=== PATIENT | male | born 1940 | race Caucasian/White ===

== ENCOUNTER 2019-01-19 12:58 | Emergency (ER) | payer OTHER ==
[~2019-01-19] VITALS: Ht 179.1 cm; Wt 82.3 kg
[2019-01-19 13:01] VITALS: Ht 179.1 cm; Wt 82.3 kg
[2019-01-19] MEDS ORDERED: OMEPRAZOLE20 M1 (13:03)
[2019-01-19] MEDS ORDERED: ATARAX 25 MG TA25 MG (13:04)
[2019-01-19] MEDS ORDERED: TRAZODONE HCL150 MG (13:04)
[2019-01-19] MEDS ORDERED: LISINOPRIL5 MG (13:05)
[2019-01-19 13:40] LABS: BASOPHILS 0.2 % (0-2); EOSINOPHILS 1.8 % (0-7); HEMOGLOBIN 14.6 g/dL (13.5-17.5); IMMATURE GRANULOCYTES 0.4 % (0-5); LYMPHOCYTES 16.7 % (15-50); MCHC 35.6 g/dL (31.0-37.0); MCV 81.5 fL (80.0-100.0); MEAN PLATELET VOLUME 8.9 fL (7.4-10.4); MONOCYTES 5.6 % (2-11); NEUTROPHILS 75.3 % (40-80); PLATELET COUNT 174 10x3/uL (130-400); RBC 5.03 10x6/uL (4.20-6.10); RDW 13.7 % (11.5-14.5); WBC 9.4 10x3/uL (4.8-10.8)
[2019-01-19 13:47] LABS: ANION GAP 10.4 mmol/L (8-16); CALCIUM 8.9 mg/dL (8.5-10.1); CARBON DIOXIDE 28.6 mmol/L (21.0-32.0); CREATININE - SERUM 1.2 mg/dL (0.6-1.3)
[2019-01-19 13:50] LABS: APPEARANCE CLEAR (CLEAR); BILIRUBIN NEGATIVE (NEGATIVE); COLOR STRAW (YELLOW); GLUCOSE 50 mg/dL (NEGATIVE); KETONE NEGATIVE (NEGATIVE); NITRITE NEGATIVE (NEGATIVE); PROTEIN NEGATIVE (NEGATIVE); UROBILINOGEN NORMAL (NORMAL)
[2019-01-19 13:53] LABS: BACTERIA FEW /hpf (NONE SEEN); EPITHELIAL CELLS NSEEN /hpf (0-5); RED CELLS - URINE 0-5 /hpf (0-5); WHITE CELLS - URINE NSEEN /hpf (0-5)
[2019-01-19] MEDS ORDERED: HYDROCODON-ACE1 EAC7 PO (14:28)
[2019-01-19 14:58] VITALS: BP 143/85
== END 2019-01-19 14:58 | disposition home or self-care (01) ==
LOC: EDBD 12:58 → D.ER 12:58
PROVIDERS: Emergency Medicine
DX: S22.089A Unspecified fracture of T11-T12 vertebra, initial encounter for closed fracture (principal); W11.XXXA Fall on and from ladder, initial encounter; Y93.89 Activity, other specified; Y92.89 Other specified places as the place of occurrence of the external cause

== ENCOUNTER 2019-01-22 01:05 | Emergency (ER) | payer OTHER, MEDICARE ==
[~2019-01-22] VITALS: Ht 179.1 cm; Wt 82.3 kg
[~2019-01-22 01:05] MED LIST: ATARAX 25 MG TA25 MG; HYDROCODON-ACE1 EAC7 PO; LISINOPRIL5 MG; OMEPRAZOLE20 M1; TRAZODONE HCL150 MG
[2019-01-22 01:09] VITALS: Ht 179.1 cm; Wt 82.3 kg
[2019-01-22 05:00] VITALS: BP 147/84
== END 2019-01-22 05:00 | disposition home or self-care (01) ==
LOC: D.ER 01:05
DX: K59.00 Constipation, unspecified (principal); R10.9 Unspecified abdominal pain; K80.80 Other cholelithiasis without obstruction